=== PATIENT | male | born 1985 | race Caucasian/White ===

== ENCOUNTER 2020-03-05 18:43 | Emergency (ER) | payer BC, OTHER ==
--- NOTE | 2020-03-05 19:41 | ER Document Report ---
ED Medical Screen (RME) - General Chief Complaint: Flu Symptoms Stated Complaint: BREATHING DIFFICULTY Time Seen by Provider: 03/05/20 19:33 Primary Care Provider: SAM BISWAS MD [Primary Care Provider] - Follow up as needed Mode of Arrival: Ambulatory Information source: Patient Notes: 34 -year-old male presents to ED for complaint of sore throat that started last night. He states it did not help his sore throat anywhere and cut the grass. He states started coughing a lot better he thought was just his allergies and his face started hurting and it hurt to breathe he had body aches and has had hot and cold flashes all day. 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 He did have a history of diabetes blood pressure but he had a gastric bypass and that is relieved. He is got a history of depression and anxiety. He does not smoke but he does not take occasionally drink. The patient was evaluated during the global Covid 19 pandemic, and that diagnosis was suspected/considered upon their initial presentation. Their evaluation, treatment and testing was consistent with current guidelines for patients who present with complaints or symptoms that may be related to Covid 19. I have greeted and performed a rapid initial assessment of this patient. A comprehensive ED assessment and evaluation of the patient, analysis of test results and completion of medical decision making process will be conducted by an additional ED providers. TRAVEL OUTSIDE OF THE [place] IN LAST 30 DAYS: No - Related Data Allergies/Adverse Reactions: aspirin [Aspirin] Adverse Reaction (Severe, Verified 10/15/13 19:28) possible anaphylaxis Past Medical History - Past Medical History Cardiac Medical History: Reports: Hx Hypertension Endocrine Medical History: Reports: Hx Diabetes Mellitus Type 2 - Immunizations Hx Diphtheria, Pertussis, Tetanus Vaccination: Yes Physical Exam - Vital signs Vitals: Temp Pulse Resp BP Pulse Ox 98.1 F 72 20 143/83 H 99 03/05/20 19:11 03/05/20 19:11 03/05/20 19:11 03/05/20 19:11 03/05/20 19:11 Course - Vital Signs Vital signs: Temp Pulse Resp BP Pulse Ox 98.1 F 72 20 143/83 H 99 03/05/20 19:11 03/05/20 19:11 03/05/20 19:11 03/05/20 19:11 03/05/20 19:11 Doctor's Discharge - Discharge Referrals: SAM BISWAS MD [Primary Care Provider] - Follow up as needed
--- NOTE | 2020-03-05 20:33 | RADIOLOGY REPORT (SQ) ---
EXAM DESCRIPTION: CHEST SINGLE VIEW CLINICAL HISTORY: 34 years Male, cough hot and cold congestion COMPARISON: Two views of the chest 06/13/2011 FINDINGS: Lungs: Lungs are clear. No focal consolidation. No pneumothorax or pleural effusion. Mediastinum: Cardiac and mediastinal silhouette are normal. Small hiatal hernia is identified. Bones: Osseous structures are normal. IMPRESSION: 1. No pneumonia or edema. 2. Small hiatal hernia.
[2020-03-05 21:36] LABS: A TYPE INFLUENZA AG NEGATIVE (NEGATIVE); B INFLUENZA AG NEGATIVE (NEGATIVE)
[2020-03-05] MEDS ORDERED: DEXAMETHASONE SOD PHOS INJ 10 MG/1 ML VIAL IM ONE (22:12)
[2020-03-05] MEDS ORDERED: KETOROLAC TROMETHAMINE 60 MG/2 ML SDV IM ONE (22:12)
--- NOTE | 2020-03-05 22:15 | ER Document Report ---
HPI - HPI Time Seen by Provider: 03/05/20 19:33 Context: Patient is a 34-year-old male who comes emergency department for chief complaint of initially a sore throat, then chills and body aches with weakness. He also developed a mild cough. Symptoms developed over the past 2 days. He is still able to swallow, he denies fever, he denies abdominal pain, chest pain, vomiting, flank pain, neck stiffness, headache. 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 He states his was COVID-19 positive in December but he tested negative, he denies any obvious exposures. He denies any daily medications. Past medical history of gastric bypass, anxiety/depression, he was previously a diabetic with hypertension before his gastric bypass but this has resolved. He denies smoking. Past Medical History - General Information source: Patient - Social History Smoking Status: Never Smoker Frequency of alcohol use: None Drug Abuse: None Lives with: Family Family History: Reviewed & Not Pertinent - Past Medical History Cardiac Medical History: Reports: Hx Hypertension Endocrine Medical History: Reports: Hx Diabetes Mellitus Type 2 - Immunizations Hx Diphtheria, Pertussis, Tetanus Vaccination: Yes Vertical Provider Document - CONSTITUTIONAL General Appearance: WD/WN, No Apparent Distress - Patient is slightly flushed and very minimally ill-appearing but there are no signs of distress - INFECTION CONTROL TRAVEL OUTSIDE OF THE [place] IN LAST 30 DAYS: No - HEENT HEENT: Atraumatic, Normal ENT Exam - Unremarkable oropharyngeal exam, patent airway, no abscess, unremarkable ENT exam otherwise, Normocephalic - NECK Neck: Normal Inspection. negative: Lymphadenopathy-Left, Lymphadenopathy-Right - RESPIRATORY Respiratory: Breath Sounds Normal, No Respiratory Distress. negative: Wheezing - CARDIOVASCULAR Cardiovascular: Regular Rate, Regular Rhythm. negative: Tachycardia - GI/ABDOMEN Gastrointestinal: Abdomen Soft, Abdomen Non-Tender. negative: Abdomen Tender - BACK Back: Normal Inspection - MUSCULOSKELETAL/EXTREMETIES Musculoskeletal/Extremeties: MAEW, FROM, Non-Tender - NEURO Level of Consciousness: Awake, Alert, Appropriate - DERM Integumentary: Warm, Dry, No Rash Course - Re-evaluation Re-evalutation: Patient has an allergy of aspirin listed but he states he is able to take Motrin without any problem. He is requesting Toradol. Influenza negative, strep negative, COVID-19 test pending, chest x-ray reviewed and negative. Oropharyngeal exam very unremarkable. Lungs clear, patient well- appearing. No concerning findings on physical exam. Patient provided with work release, discussed COVID-19 quarantine, expectations, follow-up, return precautions. Patient states appreciation and agreement. - Vital Signs Vital signs: Temp Pulse Resp BP Pulse Ox 98.1 F 72 20 143/83 H 99 03/05/20 19:11 03/05/20 19:11 03/05/20 19:11 03/05/20 19:11 03/05/20 19:11 Discharge - Discharge Clinical Impression: Body aches, Chills, Person under investigation for COVID-19 Pharyngitis Qualifiers: Pharyngitis/tonsillitis etiology: unspecified etiology Qualified Code(s): J02.9 - Acute pharyngitis, unspecified Condition: Stable Disposition: HOME, SELF-CARE Instructions: COVID-19 Guidance for Persons Under Investigation Additional Instructions: Your influenza and strep tests are negative. Based on your symptoms it is quite likely that you have COVID-19, you have been tested for this, please quarantine while you are awaiting your results. You will be contacted with your results, see additional instructions on the form. You can take 1000 mg of Tylenol and 600 mg of ibuprofen every 6 hours if needed for your symptoms. You have been treated with dexamethasone to help with your symptoms as well. Drink plenty fluids and rest. Follow-up with primary care. Return if you worsen including spiking fevers, difficulty breathing, chest pain, vomiting, or any other concerning symptoms. Forms: Return to Work Referrals: ANNEMARIE STALLWORTH PA-C [Primary Care Provider] - Follow up as needed
[2020-03-05 23:01] VITALS: BP 145/94
== END 2020-03-05 22:58 | disposition home or self-care (01) ==
LOC: ER 18:43
DX: J02.9 Acute pharyngitis, unspecified (principal); R06.00 Dyspnea, unspecified; M79.10 Myalgia, unspecified site; Z20.828 Contact with and (suspected) exposure to other viral communicable diseases; R53.1 Weakness; I10 Essential (primary) hypertension; E11.9 Type 2 diabetes mellitus without complications
CPT/HCPCS: 99284; 96372; 87070; 87880; 87804; 71045; U0003; J1885; J1100; C9803; 87635